=== PATIENT | male | born 1990 | race Caucasian/White ===

== ENCOUNTER 2020-06-05 12:08 | Emergency (ER) | payer OTHER ==
[~2020-06-05] VITALS: Ht 175.3 cm; Wt 75.0 kg
--- NOTE | 2020-06-05 12:20 | NUR ---
pt presents to ED with c/o suprapubic pain and left flank pain x 4 days, pt is incarcerated and brought by law enforcement. pt has hx kidney stones. pt rates pain level at 5/10 on arrival. pt a&o, resps even and unlabored. pt attached to bp and spo2 monitors, call light in reach .law enforcement at bedside, pt's wrists cuffed. awaiting provider and orders.
[2020-06-05] MEDS ORDERED: KETOROLAC 30 MG/1 ML IM ONE (12:30)
[2020-06-05] MEDS ORDERED: PLEASE ENTER ALLERGIES MC SCH (12:30)
[2020-06-05] MEDS ORDERED: PLEASE ENTER HEIGHT AND WEIGHT MC SCH (12:30)
[2020-06-05] MEDS ORDERED: ONDANSETRON 2MG/ML, 2ML IVPush ONE (12:30)
[2020-06-05] MEDS ORDERED: ONDANSETRON 2MG/ML, 2ML ONE (12:52)
[2020-06-05] MEDS ORDERED: KETOROLAC 30 MG/1 ML ONE (12:52)
[2020-06-05 12:54] LABS: BASOPHILS % (AUTO) 1 % (0-1); EOSINOPHILS % (AUTO) 0 % (1-7); LYMPHOCYTES % (AUTO) 18 % (22-44); MD NO; MEAN CORPUSCULAR HEMOGLOBIN 30.3 pg (27.5-34.5); MEAN CORPUSCULAR HGB CONC 33.5 g/dL (33.2-36.2); MEAN PLATELET VOLUME 9.3 fL (7.4-10.4); MONOCYTES % (AUTO) 4 % (2-9); NEUTROPHILS % (AUTO) 77 % (42-75); PLATELET COUNT 213 x10^3/uL (130-400); RED BLOOD COUNT 5.01 x10^6/uL (4.38-5.82); RED CELL DISTRIBUTION WIDTH 13.9 % (9.4-14.8)
--- NOTE | 2020-06-05 13:00 | NUR ---
urine collected and sent
[2020-06-05 13:04] LABS: ALBUMIN 4.6 g/dL (3.4-5.0); ANION GAP 9 mmol/L (5-15); CALCIUM 9.3 mg/dL (8.5-10.1); CHLORIDE 110 mmol/L (98-107); CREATININE 1.14 mg/dL (0.7-1.3)
--- NOTE | 2020-06-05 13:24 | NUR ---
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 pt informed, agreeable. pt a&o, resps even and unlabored. awaiting us and dispo.
--- NOTE | 2020-06-05 13:32 | NUR ---
urine dept of lab called to inquire regarding pending ua, urine tech states she has not received sample from main lab, tech to check main lab and call if repeat sample needed.
--- NOTE | 2020-06-05 14:02 | NUR ---
urine not found in lab, sample sent and pending. pt taken to CT at this time, nadn at transport.
[2020-06-05 14:05] LABS: MICROSCOPIC AUTO
--- NOTE | 2020-06-05 14:52 | NUR ---
Report from ANU Franks. Assumed care.
--- NOTE | 2020-06-05 15:00 | NUR ---
REPORT GIVEN TO BENJI BRENNAN AT BEDSIDE. PT A&O, RESPS EVEN AND UNLABORED, BP AND SPO2 MONITORS IN PLACE. PT HAS NO COMPLAINT. JOSEFINA AT BEDSIDE X 2.
[2020-06-05 16:28] VITALS: BP 128/73
== END 2020-06-05 16:31 | disposition home or self-care (01) ==
LOC: ED 14:08
DX: N20.1 Calculus of ureter (principal)
CPT/HCPCS: 36415; 74176; 76770; 80048; 81001; 82040; 85025; 96374; 99285; J2405

== ENCOUNTER 2020-06-06 10:50 | Emergency (ER) | payer OTHER ==
[2020-06-06] MEDS ORDERED: KETOROLAC 30 MG/1 ML IVPush ONE (11:00)
[2020-06-06] MEDS ORDERED: MORPHINE SULFATE 4 MG/ML, 1ML IVPush ONE (11:00)
[2020-06-06] MEDS ORDERED: MORPHINE SULFATE 4 MG/ML, 1ML ONE (11:04)
[2020-06-06] MEDS ORDERED: KETOROLAC 30 MG/1 ML ONE (11:04)
--- NOTE | 2020-06-06 11:12 | NUR ---
PT COMES IN C/O RIGHT LOWER ABD PAIN X2 DAYS. PT STATES HE WAS HERE YESTERDAY FOR SIMILAR SYMPTOMS AND WAS DIAGNOSED WITH A KIDNEY STONE. PT STATES PAIN IS GETTING WORSE AND URINATING IS DIFFICULT. MONITORS CONNECTED. OFFICERS AT BEDSIDE
--- NOTE | 2020-06-06 11:12 | NUR ---
MD AT BEDSIDE FOR ASSESSMENT AND TO DISCUSS PLAN OF CARE
--- NOTE | 2020-06-06 11:14 | NUR ---
US AT BEDSIDE. IV ACCESS OBTAINED. ORDERED MEDICATIONS ADMINISTERED.
[2020-06-06 11:29] LABS: MICROSCOPIC AUTO
[2020-06-06] MEDS ORDERED: LIDOCAINE 2%,20 ML JEL.PF.APP MM ONE ×2 (11:29→11:30)
--- NOTE | 2020-06-06 12:10 | NUR ---
UROJECT ADMINISTERED AND BRINK CATHETER PLACED PER PROTOCOL. PT TOLERATED PROCEDURE W/O INCIDENT
[2020-06-06 12:59] VITALS: BP 124/68
--- NOTE | 2020-06-06 13:00 | NUR ---
Officer given patient discharge instructions and prescriptions, both patient and guard have confirmed that they understand the instructions. Education provided on souza care, leg bag applied and overnight souza bag provided. Patient ambulatory with steady gait in custody from ED.
== END 2020-06-06 13:01 | disposition home or self-care (01) ==
LOC: ED 11:10
DX: N13.2 Hydronephrosis with renal and ureteral calculous obstruction (principal); R33.9 Retention of urine, unspecified
CPT/HCPCS: 51702; 76770; 81001; 96374; 96375; 99284; J1885; J2270